=== PATIENT | male | born 1990 | race Caucasian/White ===

== ENCOUNTER → 2025-02-02 13:59 | Outpatient (BNVA) | payer BC, MEDICAID, SELFPAY | PROVIDERS: PCP Family Medicine; Visit Provider Orthopaedic Surgery | DX: M54.9 Dorsalgia, unspecified (principal) | CPT/HCPCS: 72110 ==

== ENCOUNTER 2025-02-12 11:02 | Outpatient (CLI) | payer BC, MEDICAID, SELFPAY ==
--- NOTE | 2025-02-12 11:11 | XRR_ITS ---
PROCEDURE INFORMATION: Exam: XR Chest Exam date and time: 02/12/2025 11:37 AM Age: 34 years old Clinical indication: Other: Unintentional weght loss; Additional info: Unintentional weght loss/underweight TECHNIQUE: Imaging protocol: Radiologic exam of the chest. Views: 2 views. COMPARISON: No relevant prior studies available. FINDINGS: Lungs: The lungs are clear. Pleural spaces: No pneumothorax or pleural effusion. Heart/Mediastinum: Cardiomediastinal silhouette is unremarkable. Bones/joints: No acute osseous or soft tissue abnormality. Apparent cachexia. XR/XR chest 2V* [id number] IMPRESSION: No acute cardiopulmonary abnormality.
== END 2025-02-12 11:03 | disposition home or self-care (01) ==
PROVIDERS: PCP Family Medicine; Visit Provider Family Medicine
DX: R63.4 Abnormal weight loss (principal)
CPT/HCPCS: 71046

== ENCOUNTER 2025-05-22 17:41 | Emergency (ER) | payer BC, MEDICAID, SELFPAY ==
[2025-05-22 17:44] VITALS: BP 130/80; PULSE 81; RESP 17; TEMP 36.6; O2SAT 99
--- NOTE | 2025-05-22 19:13 | XRR_ITS ---
PROCEDURE INFORMATION: Exam: XR Thoracic Spine Exam date and time: 05/22/2025 7:31 PM Age: 34 years old Clinical indication: Pain in thoracic spine; C/O mid back pain with no injury TECHNIQUE: Imaging protocol: Radiologic exam of the thoracic spine. Views: 3 views. COMPARISON: CR XR chest 2V* [id number] 02/12/2025 11:37 AM FINDINGS: Bones/joints: Normal. No acute fracture. Normal alignment. Soft tissues: Unremarkable. XR/XR thoracic spine 3V* [id number] IMPRESSION: No acute findings.
--- NOTE | 2025-05-22 19:48 | W.ED.BACK ---
HPI - Back Pain/Injury General: Chief Complaint: Back Pain/Injury Stated Complaint: low back pain Time Seen by Provider: 05/22/25 17:53 Source: patient Mode of arrival: wheelchair Limitations: no limitations History of Present Illness: Patient is a 34-year-old male who presents the emergency department planing of mid back pain beginning few hours prior to arrival. He states he has had similar pain in the past but never this severe. States he noticed it when he was lying down to take a nap, it is directly in the middle of his back and nonradiating. He is not reporting any bowel or bladder incontinence or saddle anesthesia. No distal numbness or weakness in his legs. No previous back surgeries. No trauma is reported. No history of cancer, chronic steroid use, IV drug use, fever, night sweats, or significant weight loss. He has not taken anything for pain. MD elicited complaint: back pain Onset (ago): hour(s) Timing: constant Severity: moderate Similar Symptoms Previously: Yes Location: thoracic spine Radiation: none Exacerbating factors: supine positioning Associated symptoms: Deny abdominal pain, difficulty walking, fecal incontinence, fever(s) or syncope Related Data Home Medications ?Medication ?Instructions ?Recorded ?Confirmed cyclobenzaprine 10 mg tablet 10 mg PO TID 02/02/25 03/24/25 gabapentin 300 mg capsule 300 mg PO BID 02/02/25 03/24/25 brimonidine 0.2 %-timolol 0.5 % drp ophthalmic (eye) 03/24/25 03/24/25 eye drops ergocalciferol (vitamin D2) 1,250 PO 03/24/25 03/24/25 mcg (50,000 unit) capsule Allergies Allergy/AdvReac Type Severity Reaction Status Date / Time No Known Allergies Allergy Verified 03/24/25 16:03 Review of Systems General: Reports: 10 or more systems reviewed and unremarkable except in HPI and below Const: Reports: other (denies trauma); Denies: fever(s), change in weight or night sweats Card: Denies: chest pain, lightheadedness or syncope Resp: Denies: dyspnea GI: Denies: abdominal pain or fecal incontinence : Denies: urinary incontinence Musc: Reports: back pain; Denies: neck pain or extremity pain Skin/Breast: Denies: rash or skin pain Neuro: Denies: headache(s), numbness in extremities, weakness in extremities, sensory changes, lack of coordination, difficulty walking, frequent falls or involuntary movements PFSH ED PFSH: Social History Smoking and tobacco/nicotine status: former use of tobacco/nicotine Physical Exam Const: COMMON NORMALS: no acute distress, patient oriented x3, no limitations and alert GENERAL APPEARANCE: cooperative NUTRITIONAL APPEARANCE: thin OTHER: nontoxic appearing Resp: COMMON NORMALS: normal respiratory effort, No retractions, No use of accessory muscles and clear to auscultation bilaterally AUSCULTATION: clear to auscultation bilaterally Cardio: COMMON NORMALS: regular rate, regular rhythm, S1 normal heart sound present and S2 normal heart sound present RATE: regular rate RHYTHM: regular rhythm HEART SOUNDS: S1 normal heart sound present and S2 normal heart sound present Back/Pelvis: OTHER: Normal visual examination. Reproducible tenderness to palpation of the thoracic spine. No paracervical, parathoracic, or paralumbar tenderness to palpation. Full active range of motion. Extremity: COMMON NORMALS: normal to inspection and full ROM Neuro: COMMON NORMALS: patient oriented x3, moves all extremities, no focal motor deficits, no sensory deficits noted, deep tendon reflexes 2+ bilaterally and gait normal SENSORIUM/ORIENTATION: Yes alert OTHER: L3, L4, L5, and S1 nerve sensations intact. Normal knee jerk and ankle jerk reflexes. Skin: COMMON NORMALS: no rashes or lesions noted GENERAL SKIN EXAM: no rashes or lesions noted Course Vital Signs: Vital signs: Vital Signs Temperature 97.9 F 05/22/25 17:44 Pulse Rate 81 05/22/25 17:44 Respiratory Rate 17 05/22/25 17:44 Blood Pressure 130/80 05/22/25 17:44 Pulse Oximetry 99 05/22/25 17:44 Oxygen Delivery Me thod Room Air 05/22/25 17:44 MDM - Back Pain/Injury Medical Decision Making This patient presented by ambulance for mid back pain, very thin male on exam with point tenderness to the thoracic spine, though there is no step-off deformity. There is no concerning history such as IV drug use or history of cancer, and he had no neurological symptoms or any other associated symptoms to report. Neurologically intact on physical exam as well. Noted some improvement after Toradol here, and an x-ray does not show any large mass, or severe degenerative changes. Suspect that this is a contusion, is very thin stature likely makes onset more cryptic but I do not suspect any acute or emergent process at this time. His vitals have been stable, and I did educate him and family on reasons to return to the ED immediately. This was understood and he will be discharged home at this time. Labs Radiology Impressions Thoracic Spine X-Ray 05/22/25 19:13 IMPRESSION: No acute findings. All radiology interpretation(s) finalized by discharge Discharge Plan Discharge Patient Disposition: Home Clinical Impression: Contusion of mid back Qualifiers: Encounter type: initial encounter Laterality: unspecified laterality Qualified Code(s): S20.229A - Contusion of unspecified back wall of thorax, initial encounter Condition: Stable Prescriptions: No Action cyclobenzaprine 10 mg tablet 10 mg PO TID gabapentin 300 mg capsule 300 mg PO BID ergocalciferol (vitamin D2) 1,250 mcg (50,000 unit) capsule PO brimonidine-timolol 0.2-0.5 % drops ophthalmic (eye) Discharge Orders: Discharge ED (Routine); Ordered 05/22/25 Ordered By: Gray Skelton Referrals: Jairo Elliott MD [Primary Care Provider, [facility]] Patient Instructions: Patient Portal & Christina Instructions Activity Restrictions/Additional Instructions: Mid-Back Contusion Discharge Diagnosis: 34-year-old male with contusion of the mid back. X-ray negative for acute fracture or other significant findings. No red flag symptoms on history or examination. Discharge Instructions: 1. Activity and Mobilization - Encourage early mobilization and activity as tolerated. Prolonged bed rest should be avoided, as remaining active is associated with improved short-term outcomes and reduced disability. - Gradually resume normal activities, avoiding movements that exacerbate pain. - If pain is severe, limit strenuous activity but do not remain immobile. 2. Analgesia and Symptom Management - Use nonsteroidal anti-inflammatory drugs (NSAIDs) such as ibuprofen or acetaminophen for pain control, following standard dosing guidelines and considering contraindications. - Muscle relaxants may be considered for short-term use if muscle spasm is present, but should be used judiciously. - Application of local heat may provide symptomatic relief. 3. Physical Therapy and Exercise - If pain persists beyond 2?4 weeks or interferes with function, consider referral for physical therapy. - Home exercises focusing on gentle stretching and spine stabilization may be beneficial, but should be initiated only as pain allows. 4. Bracing - Routine use of external bracing is not required for isolated contusions without instability or neurological deficit. The [employer] notes that bracing does not improve outcomes in neurologically intact patients with stable thoracolumbar injuries, but may be considered for comfort at the discretion of the treating physician. 5. Patient Education and Prognosis - Most cases of isolated back contusion are self-limited and resolve with conservative management. - Educate regarding the natural history and expected recovery, emphasizing the importance of activity and avoidance of bed rest. 6. Strict Return Precautions Advise immediate return for any of the following symptoms, which may indicate a more serious underlying injury or complication: - New or worsening weakness, numbness, or tingling in the legs - Loss of bowel or bladder control, urinary retention, or incontinence - Loss of anal sphincter tone or saddle anesthesia - Severe, unremitting pain not controlled with recommended measures - Fever, chills, or signs of systemic illness - Any other concerning or rapidly progressive symptoms Follow-Up: Routine follow-up is not required unless symptoms persist beyond 2?4 weeks, worsen, or new symptoms develop. If pain is not improving, consider further evaluation and referral as appropriate. Summary: This patient has a benign, self-limited injury with no evidence of acute fracture or neurological compromise. Conservative management with early mobilization, analgesia, and patient education is recommended. Strict return precautions are provided to ensure prompt recognition of any delayed complications. Print Language: Greek Coding Level of Care Code ED Technical Sales Director for Rubia Cole
== END 2025-05-22 20:16 | disposition home or self-care (01) ==
PROVIDERS: Emergency Provider Physician Assistant; PCP Family Medicine
DX: S20.224A Contusion of middle back wall of thorax, initial encounter (principal); Z87.891 Personal history of nicotine dependence; X58.XXXA Exposure to other specified factors, initial encounter
CPT/HCPCS: 72072; 96372; 99284; J1885

== ENCOUNTER 2025-05-23 18:50 | Emergency (ER) | payer BC, MEDICAID, SELFPAY ==
[2025-05-23 18:58] VITALS: BP 125/89; PULSE 67; RESP 18; O2SAT 99; BMI 18.6
--- NOTE | 2025-05-23 19:16 | CTR_ITS ---
PROCEDURE INFORMATION: Exam: CT Thoracic Spine With Contrast Exam date and time: 05/23/2025 7:38 PM Age: 34 years old Clinical indication: Pain in thoracic spine; Persistent mid back pain with no injury; Additional info: Lower thoracic back pain no injury TECHNIQUE: Imaging protocol: Computed tomography of the thoracic spine with contrast. Radiation optimization: All CT scans at this facility use at least one of these dose optimization techniques: automated exposure control; mA and/or kV adjustment per patient size (includes targeted exams where dose is matched to clinical indication); or iterative reconstruction. Contrast material: OMNI 350; Contrast volume: 80 ml; Contrast route: INTRAVENOUS (IV); COMPARISON: CR (CHEST, ) 05/22/2025 7:31 PM RADIATION DOSE METRICS: Total DLP (mGy-cm): 401.34 FINDINGS: Bones/joints: Vertebral body heights are maintained. Facet alignment is preserved. No acute fracture. No aggressive osseous lesions. No significant degenerative change. No high-grade neural foraminal or spinal canal stenosis. Soft tissues: Unremarkable. CT/CT thoracic spine w con [id number] IMPRESSION: No acute findings. No significant degenerative change. If symptoms persist, consider outpatient MRI.
[2025-05-23 19:28] LABS: Hematocrit 38.8 % (37-53); Hemoglobin 13.50 g/dL (11.27-16.99); Mean Corpuscular HGB Conc 34.8 g/dL (30-55); Mean Corpuscular Hemoglobin 30.8 pg (27-33); Mean Corpuscular Volume 88.6 fl (82-101); Nucleated Red Blood Cells % 0 %; Platelet Count 247 10^3/cmm (157-399); Red Blood Count 4.38 10^6/uL (3.85-5.65); White Blood Count 5.31 10^3/uL (3.29-11.43)
--- NOTE | 2025-05-23 19:32 | ED_ITS ---
HPI - Back Pain/Injury 2 General: Chief Complaint: Back Pain/Injury Stated Complaint: Back Pain Time Seen by Provider: 05/23/25 19:07 History of Present Illness: 34-year-old 43 kg male presenting with m idline lower thoracic back pain. No injury. He was here last night for the same symptoms. X-rays were negative. No fever. No urine changes. No vomiting. No diarrhea. No other systemic symptoms. He states his back was improved until a couple of hours prior to arrival after last night. He denies other medical problems. 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 Related Data Home Medications ?Medication ?Instructions ?Recorded ?Confirmed cyclobenzaprine 10 mg tablet 10 mg PO TID 02/02/2511/17 gabapentin 300 mg capsule 300 mg PO BID 02/02/2503/24 brimonidine 0.2 %-timolol 0.5 % drp ophthalmic (eye) 0 03/24/25 03/24/25 eye drops ergocalciferol (vitamin D2) 1,250 PO 03/24/25 03/24/25 mcg (50,000 unit) capsule Previous Rx's ?Medication ?Instructions ?Recorded diclofenac sodium 50 mg 50 mg PO TID PRN pain #30 ta bs 05/23/25 tablet,delayed release methylprednisolone 4 mg tablets in See Rx Instructions PO .COMPLEX 05/23/25 a dose pack (Medrol (Cristi)) #21 ea Allergies Allergy/AdvReac Type Severity Reaction Status Date / Time No Known Allergies Allergy Verified 05/23/25 19:05 [facility] ED 2 PFSH: Social History Smoking and tobacco/nicotine status: former use of tobacco/nicotine Physical Exam 2 Const: GENERAL APPEARANCE: cooperative and frail appearing (For age); not ill appearing NUTRITIONAL APPEARANCE: thin HENMT: COMMON NORMALS: normocephalic, atraumatic and Normal external nose present HEAD & SCALP: normocephalic and atraumatic FACE & SINUS: normal facial exam and face symmetric NOSE: Normal external nose present Eye: COMMON NORMALS: Equal, round and reactive pupils present and EOMs intact bilaterally PUPIL: Yes Equal, round and reactive pupils present Neck/C-Spine: GENERAL: Yes trachea midline Chest: CHEST: Yes Symmetrical chest wall rise Resp: COMMON NORMALS: normal respiratory effort, No retractions, No use of accessory muscles and clear to auscultation bilaterally AUSCULTATION: clear to auscultation bilaterally Cardio: COMMON NORMALS: regular rate and regular rhythm RATE: regular rate RHYTHM: regular rhythm GI: COMMON NORMALS: Normal to inspection, nondistended, normoactive bowel sounds present Back/Pelvis: OTHER: Examination of the spine reveals exquisite tenderness over the lower thoracic spine. Only in the midline. No paraspinal muscular tenderness or muscle spasm. Minimal warmth present midline. Skin is hyperesthetic. No increased pain with straight leg raise testing while seated. Extremity: COMMON NORMALS: no pedal edema Neuro: DORCAS COMA SCALE: document GCS findings [place] coma scale eye opening: Spontaneous Dorcas coma scale verbal response: Orientated Dorcas coma scale motor response: Obey commands Dorcas coma scale total score: 15 S ENSORY EXAM: Yes extremities (intact) Psych: COMMON NORMALS: speech normal SPEECH: Yes normal speech Skin: NARRATIVE SKIN EXAM: Minimal discoloration of the tender area, with very slight ecchymosis in the midline at the lower thoracic spine. Course 2 Vital Signs: Vital signs: Vital Signs Pulse Rate 75 05/23/25 23:41 Respiratory Rate 17 05/23/25 23:41 Blood Pressure 112/82 05/23/25 23:41 Pulse Oximetry 97 05/23/25 23:41 Oxygen Delivery Me thod Room Air 05/23/25 20:02 MDM - Back Pain/Injury Medical Decision Making Vitals are normal. CBC is normal. Labs are pending. Pain is out of proportion to the exam findings. This is an odd presentation with no injury. CT with contrast has been ordered. On thoracic imaging, partial imaging of a renal cyst was caught. Because of this, imaging of the chest abdomen pelvis was performed. There were no acute findings on the thoracic spine CT. No mass, no significant degenerative change, no abscess or evidence of active infection. Chest abdomen pelvis CT reveal findings suspicious for acute seminal vesiculitis prostatitis and cystitis. He does have some constipation as well. His urinalysis is negative. He denies overt testicular pain or mass. This is still an odd presentation. Will proceed with ultrasound of the testicles to ensure no mass and to further define infection. Testicular ultrasound is normal. Patient is feeling better. With normal testicular ultrasound, and no evidence of UTI, we will elect not to treat at this time. Close outpatient follow-up. Will treat with a short tapering dose of steroid, pain medication in the form of anti-inflammatories. Follow-up with PCP this coming week. Further outpatient imaging such as MRI may be needed if symptoms persist Labs 05/23/25 19:23 05/23/25 19:23 Radiology Impressions Thor[address] Spine CT 05/23/25 19:16 IMPRESSION: No acute findings. No significant degenerative change. If symptoms persist, consider outpatient MRI. Chest/Abdomen/Pelvis CT 05/23/25 19:47 IMPRESSION: No acute findings. IMPRESSION: 1. Findings suspicious for acute seminal vesiculitis, prostatitis, and cystitis. 2. Moderate colonic stool burden, suggestive constipation. Scrotum Ultrasound 05/23/25 21:16 IMPRESSION: No definite acute abnormality. Laboratory Results WBC 5.31 10^3/uL (3.29-11.43) 05/23/25 19:23 RBC 4.38 10^6/uL (3.85-5.65) 05/23/25 19:23 Hgb 13.50 g/dL (11.27-16.99) 05/23/25 19:23 Hct 38.8 % (37-53) 05/23/25 19:23 MCV 88.6 fl (82-101) 05/23/25 19:23 MCH 30.8 pg (27-33) 05/23/25 19:23 MCHC 34.8 g/dL (30-55) 05/23/25 19:23 RDW 12.0 % (12.1-15.1) L 05/23/25 19:23 Plt Count 247 10^3/cmm (157-399) 05/23/25 19:23 MPV 10.3 fL (7.4-10.4) 05/23/25 19:23 Neut % (Auto) 51.9 % 05/23/25 19:23 Lymph % (Auto) 35.0 % 05/23/25 19:23 Dougherty % (Auto) 10.7 % 05/23/25 19:23 Eos % (Auto) 1.3 % 05/23/25 19:23 Baso % (Auto) 0.9 % 05/23/25 19:23 Neut # (Auto) 2.75 10^3/uL (1.8-7.7) 05/23/25 19:23 Lymph # (Auto) 1.9 10^3/uL (0.8-4.8) 05/23/25 19:23 Dougherty # (Auto) 0.6 10^3/uL (0.2-0.9) 05/23/25 19:23 Eos # (Auto) 0.1 10^3/uL (0.0-0.8) 05/23/25 19:23 Baso # (Auto) 0.1 10^3/uL (0.0-0.1) 05/23/25 19:23 Nucleated RBC % (auto) 0 % 05/23/25 19:23 Nucleated RBCs # 0.0 /100WBC 05/23/25 19:23 ESR 46 mm/hr (0-10) H 05/23/25 19:23 Sodium 137 mmol/L (136-145) 05/23/25 19:23 Potassium 3.9 mmol/L (3.5-5.1) 05/23/25 19:23 Chloride 98 mmol/L (98-107) 05/23/25 19:23 Carbon Dioxide 28 mmol/L (22-29) 05/23/25 19:23 Anion Gap 14.9 (5-19) 05/23/25 19:23 BUN 12 mg/dL (6-20) 05/23/25 19:23 Creatinine 0.8 mg/dL (0.7-1.2) 05/23/25 19:23 GFR Calculation 110.7 mL/min (90-130) 05/23/25 19:23 Glucose 82 mg/dL (65-115) 05/23/25 19:23 Calculated Osmolality 283 mOsm/kg (285-295) L 05/23/25 19:23 Calcium 9.6 mg/dL (8.5-10.5) 05/23/25 19:23 Total Bilirubin 0.5 mg/dL (0.15-1.2) 05/23/25 19:23 AST 16 U/L (0-40) 05/23/25 19:23 ALT 9 U/L (0-41) 05/23/25 19:23 Alkaline Phosphatase 75 U/L (40-130) 05/23/25 19:23 C-Reactive Protein 3.0 mg/L (0.0-4.9) 05/23/25 19:23 Total Protein 7.4 g/dL (6.6-8.7) 05/23/25 19:23 Albumin 4.2 g/dL (3.5-5.2) 05/23/25 19:23 Globulin 3.2 g/dL (1.3-4.6) 05/23/25 19:23 TSH 3.13 uIU/mL (0.27-4.20) 05/23/25 19:23 Urine Color Yellow (Yellow) 05/23/25 19:34 Urine Appearance Clear (CLEAR) 05/23/25 19:34 Urine pH 6.0 (5-7) 05/23/25 19:34 Ur Specific Tracy 1.005 (1.005-1.030) 05/23/25 19:34 Urine Protein Negative (Negative) 05/23/25 19:34 Urine Glucose (UA) Negative (Normal) 05/23/25 19:34 Urine Ketones Negative (Negative) 05/23/25 19:34 Urine Blood Negative (Negative) 05/23/25 19:34 Urine Nitrate Negative (Negative) 05/23/25 19:34 Urine Bilirubin Negative (Negative) 05/23/25 19:34 Urine Urobilinogen 0.2 mg/dL (Negative) 05/23/25 19:34 Ur Leukocyte Esterase Negative (Negative) 05/23/25 19:34 Urine RBC 0-2 /hpf (0-2) 05/23/25 19:34 Urine WBC 0-5 /hpf (0-5) 05/23/25 19:34 Ur Squamous Epith Cells 0-5 /hpf (0-5) 05/23/25 19:34 Amorphous Sediment Not Reportable 05/23/25 19:34 Urine Bacteria None seen /hpf (NONE) 05/23/25 19:34 Hyaline Casts 0-4 /lpf H 05/23/25 19:34 Urine Opiates Screen Negative ng/mL (Negative) 05/23/25 19:34 Ur Barbiturates Screen Negative ng/mL (Negative) 05/23/25 19:34 Ur Phencyclidine Scrn Negative ng/mL (Negative) 05/23/25 19:34 Ur Amphetamines Screen Negative ng/mL (Negative) 05/23/25 19:34 U Benzodiazepines Scrn Negative ng/mL (Negative) 05/23/25 19:34 Urine Cocaine Screen Negative ng/mL (Negative) 05/23/25 19:34 U Marijuana (THC) Screen Negative ng/mL (Negative) 05/23/25 19:34 All radiology interpretation(s) finalized by discharge Discharge Plan Discharge Patient Disposition: Home Clinical Impression: Thoracic back pain Condition: Stable Prescriptions: New methylprednisolone [Medrol (Cristi)] 4 mg tablets,dose pack See Rx Instructions .ROUTE .COMPLEX Qty: 21 0RF Rx Instructions: orally per package directions diclofenac sodium 50 mg tablet,delayed release (DR/EC) 50 mg PO TID PRN (Reason: pain) Qty: 30 0RF No Action cyclobenzaprine 10 mg tablet 10 mg PO TID gabapentin 300 mg capsule 300 mg PO BID ergocalciferol (vitamin D2) 1,250 mcg (50,000 unit) capsule PO brimonidine-timolol 0.2-0.5 % drops ophthalmic (eye) Discharge Orders: Discharge ED (Routine); Ordered 05/23/25 Ordered By: Laureano Smith Referrals: Jairo Elliott MD [Primary Care Provider, Family Practice] - 1-3 days Patient Instructions: Back Pain (ED), Opioid Safety, Pain Management, Patient Portal & Christina Instructions Activity Restrictions/Additional Instructions: Follow-up with your doctor this coming week. Call Saturday for an appointment. Further outpatient workup or imaging may need to be completed if pain persists. Medication as directed. Return for fever, vomiting, other concerning symptoms. Print Language: Danish Coding Level of Care Code ED Education Counselor for Rubia Cole
[2025-05-23] MEDS: iohexol 350 mg/mL 500 mL Btl (per mL) IV (19:41)
--- NOTE | 2025-05-23 19:47 | CTR_ITS ---
PROCEDURE INFORMATION: Exam: CT Chest With Contrast; Diagnostic Exam date and time: 05/23/2025 7:48 PM Age: 34 years old Clinical indication: Other: N/a; Persistent mid back pain with increased weight loss despite increased caloric intake; Additional info: Back pain with weight loss TECHNIQUE: Imaging protocol: Diagnostic computed tomography of the chest with contrast. Radiation optimization: All CT scans at this facility use at least one of these dose optimization techniques: automated exposure control; mA and/or kV adjustment per patient size (includes targeted exams where dose is matched to clinical indication); or iterative reconstruction. Contrast material: OMNI 350; Contrast volume: 80 ml; Contrast route: INTRAVENOUS (IV); COMPARISON: CR XR chest 2V* [id number] 02/12/2025 11:37 AM RADIATION DOSE METRICS: Total DLP (mGy-cm): 516.79 FINDINGS: Lungs: No pulmonary mass or consolidation. Pleural spaces: No pneumothorax. No pleural effusion. Heart: No cardiomegaly. No pericardial effusion. Lymph nodes: No enlarged lymph nodes. Vasculature: No aortic aneurysm or dissection. Respiratory motion limits evaluation of the aortic root. Bones/joints: No acute fracture. Soft tissues: Unremarkable. PROCEDURE INFORMATION: Exam: CT Abdomen And Pelvis With Contrast Exam date and time: 05/23/2025 7:48 PM Age: 34 years old Clinical indication: Other: N/a; Persistent mid back pain with increased weight loss despite increased caloric intake; Additional info: Back pain with weight loss TECHNIQUE: Imaging protocol: Computed tomography of the abdomen and pelvis with contrast. Radiation optimization: All CT scans at this facility use at least one of these dose optimization techniques: automated exposure control; mA and/or kV adjustment per patient size (includes targeted exams where dose is matched to clinical indication); or iterative reconstruction. Contrast material: OMNI 350; Contrast volume: 80 ml; Contrast route: INTRAVENOUS (IV); COMPARISON: CR XR lumbar spine min 4V [id number] 02/02/2025 2:50 PM RADIATION DOSE METRICS: Total DLP (mGy-cm): 516.79 FINDINGS: Liver: Liver is unremarkable. Gallbladder and biliary ducts: No calcified gallstones, pericholecystic inflammatory change, or biliary ductal dilation. Pancreas: Pancreas is unremarkable. Spleen: Spleen is unremarkable. Adrenal glands: No adrenal nodules. Kidneys and ureters: Calyceal diverticulum in the right superior renal pole. No hydroureteronephrosis. Stomach and bowel: No bowel obstruction. Moderate colonic stool burden. Appendix: No evidence of appendicitis. Intraperitoneal space: No free air. No significant fluid collection. Vasculature: No aortic aneurysm. Lymph nodes: No enlarged lymph nodes. Urinary bladder: Circumferential bladder wall thickening. Reproductive: Heterogeneous mildly enlarged prostate. Seminal vesicle enlargement with areas of cystic dilation and mural hyperemia. Bones/joints: No acute fracture. No aggressive osseous lesions. No high-grade neural foraminal or spinal canal stenosis in the lumbar spine. Soft tissues: Unremarkable. CT/CT chest abdpel w/*[id number] IMPRESSION: No acute findings. IMPRESSION: 1. Findings suspicious for acute seminal vesiculitis, prostatitis, and cystitis. 2. Moderate colonic stool burden, suggestive constipation.
[2025-05-23 19:58] LABS: Alanine Aminotransferase 9 U/L (0-41); Albumin Level 4.2 g/dL (3.5-5.2); Alkaline Phosphatase 75 U/L (40-130); Anion Gap 14.9 (5-19); Aspartate Amino Transferase 16 U/L (0-40); Blood Urea Nitrogen 12 mg/dL (6-20); Calcium 9.6 mg/dL (8.5-10.5); Carbon Dioxide 28 mmol/L (22-29); Chloride 98 mmol/L (98-107); Creatinine Clr Calc Pharmacy 87.0120; Globulin 3.2 g/dL (1.3-4.6); Glucose 82 mg/dL (65-115); Osmolality Calculated 283 mOsm/kg (285-295); Potassium 3.9 mmol/L (3.5-5.1); Sodium 137 mmol/L (136-145); Total Protein 7.4 g/dL (6.6-8.7)
[2025-05-23] MEDS: ondansetron 2 mg/ML SDV 2 mL 4 MG IVP (20:00)
[2025-05-23 20:02] VITALS: BP 147/100; PULSE 100; RESP 16; O2SAT 100
[2025-05-23] MEDS: morphine 4 mg/mL SDV 1 mL IVP (20:02)
[2025-05-23 20:09] LABS: Glucose Urine UA Negative (Normal); Nitrate Urine Negative (Negative); Specific Gravity, Urine 1.005 (1.005-1.030)
[2025-05-23 20:15] LABS: Add Urine Microscopic? YES
[2025-05-23 20:16] LABS: PCP Screen Urine Negative (Negative)
[2025-05-23 20:53] LABS: Thyroid Stimulating Hormone 3.13 uIU/mL (0.27-4.20)
--- NOTE | 2025-05-23 21:16 | USR_ITS ---
PROCEDURE INFORMATION: Exam: US Scrotum Exam date and time: 05/23/2025 10:05 PM Age: 34 years old Clinical indication: Abnormal findings; Abnormal imaging studies, genitourinary organs; Additional info: Vesiculitis TECHNIQUE: Imaging protocol: Real-time ultrasound of the scrotum and contents with color Doppler and image documentation. COMPARISON: CR XR lumbar spine min 4V [id number] 02/02/2025 2:50 PM FINDINGS: Right testicle: Normal. No mass. Normal color Doppler and arterial waveforms. No torsion. Left testicle: Normal. Larger relative to right, questionable clinical significance. No mass. Normal color Doppler and arterial waveforms. No torsion. Epididymides: Normal. Bilateral epididymal cysts. Scrotum/soft tissues: Normal. Mild hydrocele on the left. US/US scrotum [id number] IMPRESSION: No definite acute abnormality.
[2025-05-23 23:41] VITALS: BP 112/82; PULSE 75; RESP 17; O2SAT 97
== END 2025-05-23 23:44 | disposition home or self-care (01) ==
PROVIDERS: Emergency Provider Emergency Medicine; PCP Family Medicine
DX: M54.6 Pain in thoracic spine (principal); Z87.891 Personal history of nicotine dependence
CPT/HCPCS: 36415; 71260; 72129; 74177; 76870; 80053; 80306; 81001; 84443; 85025; 85651; 86140; 96374; 96375; 99285; J1885; J2270; J2405

== ENCOUNTER 2025-06-02 18:20 | Emergency (ER) | payer BC, MEDICAID, SELFPAY ==
[2025-06-02 18:47] VITALS: BP 126/83; PULSE 64; RESP 14; TEMP 36.4; O2SAT 100
--- NOTE | 2025-06-02 19:18 | W.ED.BACK ---
HPI - Back Pain/Injury General: Chief Complaint: Back Pain/Injury Stated Complaint: chronic back pain History of Present Illness: 34-year-old male with history of chronic low back pain. Said his got worse today. He was worked up just over 10 days ago here in the emergency room for this thoroughly. We discussed that he needs to get in with his primary doc and consider MRI, physical therapy and if he needs chronic pain management they will have to do this. No saddle numbness, no urinary retention or incontinence, no focal motor deficit, no sensory deficit. no recent fever. no cough. no shortness of breath. no chest pain. no abdominal pain. no nausea or vomiting. no dysuria. no altered mental status. no edema. Related Data Home Medications ?Medication ?Instructions ?Recorded ?Confirmed cyclobenzaprine 10 mg tablet 10 mg PO TID 02/02/25 03/24/25 gabapentin 300 mg capsule 300 mg PO BID 02/02/25 03/24/25 brimonidine 0.2 %-timolol 0.5 % drp ophthalmic (eye) 03/24/25 03/24/25 eye drops ergocalciferol (vitamin D2) 1,250 PO 03/24/25 03/24/25 mcg (50,000 unit) capsule Previous Rx's ?Medication ?Instructions ?Recorded diclofenac sodium 50 mg 50 mg PO TID PRN pain #30 tabs 05/23/25 tablet,delayed release methylprednisolone 4 mg tablets in See Rx Instructions PO .COMPLEX 05/23/25 a dose pack (Medrol (Cristi)) #21 ea cyclobenzaprine 10 mg tablet 10 mg PO Q8H PRN muscle spasm #20 06/02/25 tabs hydrocodone 5 mg-acetaminophen 325 1 tab PO Q6H PRN pain #20 tabs 06/02/25 mg tablet polyethylene glycol 3350 17 17 g PO DAILY #510 grams 06/02/25 gram/dose oral powder (Miralax) Allergies Allergy/AdvReac Type Severity Reaction Status Date / Time No Known Allergies Allergy Verified 06/02/25 18:50 Review of Systems Narrative: Constitutional symptoms: Negative except as documented in HPI. Skin symptoms: Negative except as documented in HPI. Eye symptoms: Negative except as documented in HPI. ENMT symptoms: Negative except as documented in HPI. Respiratory symptoms: Negative except as documented in HPI. Cardiovascular symptoms: Negative except as documented in HPI. Gastrointestinal symptoms: Negative except as documented in HPI. Genitourinary symptoms: Negative except as documented in HPI. Musculoskeletal symptoms: Negative except as documented in HPI. Neurologic symptoms: Negative except as documented in HPI. Psychiatric symptoms: Negative except as documented in HPI. Endocrine symptoms: Negative except as documented in HPI. PFSH ED PFSH: Social History Smoking and tobacco/nicotine status: former use of tobacco/nicotine Physical Exam Narrative: EXAM NARRATIVE: General: Alert, no acute distress. Head: Normocephalic Neck: Trachea midline Eye: Extraocular movements are intact. Ears, nose, mouth and throat: Oral mucosa moist Respiratory: Respirations are non-labored Musculoskeletal: Normal ROM Back: no step off, no focal tenderness, some paraspinal muscle tenderness Neurological: Alert and oriented, No focal neurological deficit observed. Psychiatric: Cooperative, appropriate mood & affect. Course Vital Signs: Vital signs: Vital Signs Temperature 97.5 F L 06/02/25 18:47 Pulse Rate 64 06/02/25 18:47 Respiratory Rate 14 06/02/25 18:47 Blood Pressure 126/83 06/02/25 18:47 Pulse Oximetry 100 06/02/25 18:47 Oxygen Delivery Me thod Room Air 06/02/25 18:47 MDM - Back Pain/Injury Medical Decision Making Assessment and plan: Low back pain ?[place], IM Toradol and IM Norflex in the emergency room - Discharged home - Discussed plan with patient. Answered any questions. - Evaluation and treatment of this problem were appropriate in the emergency setting. No radiology studies performed this visit Discharge Plan Discharge Patient Disposition: Home Clinical Impression: Lumbar radiculopathy Condition: Stable Prescriptions: New cyclobenzaprine 10 mg tablet 10 mg PO Q8H PRN (Reason: muscle spasm) Qty: 20 0RF hydrocodone-acetaminophen 5-325 mg tablet 1 tab PO Q6H PRN (Reason: pain) Qty: 20 0RF polyethylene glycol 3350 [Miralax] 17 gram/dose powder 17 g PO DAILY Qty: 510 0RF Rx Instructions: Take 1 scoop daily while taking pain medications. No Action cyclobenzaprine 10 mg tablet 10 mg PO TID gabapentin 300 mg capsule 300 mg PO BID ergocalciferol (vitamin D2) 1,250 mcg (50,000 unit) capsule PO brimonidine-timolol 0.2-0.5 % drops ophthalmic (eye) methylprednisolone [Medrol (Cristi)] 4 mg tablets,dose pack See Rx Instructions .ROUTE .COMPLEX Qty: 21 0RF Rx Instructions: orally per package directions diclofenac sodium 50 mg tablet,delayed release (DR/EC) 50 mg PO TID PRN (Reason: pain) Qty: 30 0RF Discharge Orders: Discharge ED (Routine); Ordered 06/02/25 Ordered By: Cristina Meléndez Referrals: Jairo Elliott MD [Primary Care Provider, Family Practice] Discharge Diet: Usual diet Discharge Activity: Increase activity as tolerated Patient Instructions: Opioid Safety, Pain Management, Patient Portal & Christina Instructions Activity Restrictions/Additional Instructions: Thank you for choosing [facility] for your healthcare needs today. You have been screened and evaluated and felt safe for discharge. Health conditions do change or evolve sometimes and as such it is important that you follow up with your Primary Doctor to be re checked, 3-5 days is a general good time frame for follow up. You are always welcome to return to the ED for re assessment if your symptoms are worsening or you have new concerns Print Language: South African Coding Level of Care Code ED Primary Care Md for Rubia Cole
[2025-06-02] MEDS: HYDROcodone-acetaminophen 10-325 mg Tablet 1 TAB PO (19:25)
[2025-06-02] MEDS: orphenadrine 30 mg/mL Inj 2 mL 60 MG IM (19:25)
[2025-06-02 20:10] VITALS: BP 147/92; PULSE 66; O2SAT 99
== END 2025-06-02 20:11 | disposition home or self-care (01) ==
PROVIDERS: Emergency Provider Emergency Medicine; PCP Family Medicine
DX: M54.16 Radiculopathy, lumbar region (principal); Z87.891 Personal history of nicotine dependence
CPT/HCPCS: 96372; 99284; J1885; J2360; J9999

== ENCOUNTER 2025-06-06 07:14 | Emergency (ER) | payer BC, MEDICAID, SELFPAY ==
[2025-06-06 07:18] VITALS: BP 127/101; PULSE 80; RESP 16; TEMP 36.1; O2SAT 98; BMI 17.4
--- NOTE | 2025-06-06 07:25 | CTR_ITS ---
PROCEDURE INFORMATION: Exam: CT Lumbar Spine Without Contrast Exam date and time: 06/06/2025 7:47 AM Age: 34 years old Clinical indication: Low back pain TECHNIQUE: Imaging protocol: Computed tomography of the lumbar spine without contrast. Radiation optimization: All CT scans at this facility use at least one of these dose optimization techniques: automated exposure control; mA and/or kV adjustment per patient size (includes targeted exams where dose is matched to clinical indication); or iterative reconstruction. COMPARISON: CR XR lumbar spine min 4V [id number] 02/02/2025 2:50 PM RADIATION DOSE METRICS: Total DLP (mGy-cm): 277.98 FINDINGS: Bones/joints: No acute fracture. Normal alignment. No significant disc bulge or herniation. No severe spinal canal stenosis. No significant neural foraminal narrowing. Kidneys and ureters: Right renal cyst. Soft tissues: Unremarkable. CT/CT lumbar spine wo con* [id number] IMPRESSION: No acute lumbar spine fracture. COMMENTS: Consistent with the [employer]'s Incidental Findings Committee white paper (J Am Nichole Radiol 2018): Any incidental renal lesion less than 1 cm or classified as too small to characterize, or any incidental cystic renal lesion characterized as simple-appearing, is likely benign. No follow-up imaging is recommended for these lesions per consensus recommendations based on imaging criteria.
--- NOTE | 2025-06-06 07:26 | W.ED.BACK ---
HPI - Back Pain/Injury General: Chief Complaint: Back Pain/Injury Stated Complaint: low back pain Time Seen by Provider: 06/06/25 07:15 Source: patient Mode of arrival: ambulatory Limitations: no limitations History of Present Illness: 34-year-old male states he has been having low back pains going on for 1 to 2 weeks. States pain sharp in nature he was seen here 2 days ago states he is ran out of his medication he denies any bowel or bladder incontinence denies any difficulty walking. Associated symptoms: Deny abdominal pain, chills, fever(s), nausea or vomiting Related Data Home Medications ?Medication ?Instructions ?Recorded ?Confirmed cyclobenzaprine 10 mg tablet 10 mg PO TID 02/02/25 03/24/25 gabapentin 300 mg capsule 300 mg PO BID 02/02/25 03/24/25 brimonidine 0.2 %-timolol 0.5 % drp ophthalmic (eye) 03/24/25 03/24/25 eye drops ergocalciferol (vitamin D2) 1,250 PO 03/24/25 03/24/25 mcg (50,000 unit) capsule Previous Rx's ?Medication ?Instructions ?Recorded diclofenac sodium 50 mg 50 mg PO TID PRN pain #30 tabs 05/23/25 tablet,delayed release methylprednisolone 4 mg tablets in See Rx Instructions PO .COMPLEX 05/23/25 a dose pack (Medrol (Cristi)) #21 ea cyclobenzaprine 10 mg tablet 10 mg PO Q8H PRN muscle spasm #20 06/02/25 tabs hydrocodone 5 mg-acetaminophen 325 1 tab PO Q6H PRN pain #20 tabs 06/02/25 mg tablet polyethylene glycol 3350 17 17 g PO DAILY #510 grams 06/02/25 gram/dose oral powder (Miralax) Allergies Allergy/AdvReac Type Severity Reaction Status Date / Time No Known Allergies Allergy Verified 06/06/25 07:17 Review of Systems Const: Denies: fever(s), chills, body aches or change in appetite ENMT: Denies: throat pain or dental pain Card: Denies: chest pain Resp: Denies: dyspnea GI: Denies: abdominal pain, nausea, vomiting or diarrhea Musc: Reports: back pain; Denies: neck pain Skin/Breast: Denies: rash Neuro: Denies: headache(s) PFSH ED PFSH: Social History Smoking and tobacco/nicotine status: former use of tobacco/nicotine Physical Exam Const: COMMON NORMALS: no acute distress, patient oriented x3 and healthy appearing HENMT: COMMON NORMALS: normocephalic and atraumatic HEAD & SCALP: normocephalic and atraumatic Neck/C-Spine: COMMON NORMALS: full ROM and supple Chest: COMMONS NORMALS: normal inspection of the chest Resp: COMMON NORMALS: normal respiratory effort, No retractions, No use of accessory muscles and clear to auscultation bilaterally AUSCULTATION: clear to auscultation bilaterally Cardio: COMMON NORMALS: regular rate, regular rhythm and No murmurs present (Cardio) RATE: regular rate RHYTHM: regular rhythm Back/Pelvis: OTHER: Low back tenderness no saddle anesthesia Extremity: COMMON NORMALS: normal to inspection and full ROM Neuro: COMMON NORMALS: patient oriented x3, moves all extremities and no focal motor deficits Psych: COMMON NORMALS: mental status grossly normal, Normal thought process present and cooperative THOUGHT PROCESS: Normal thought process present Skin: COMMON NORMALS: no rashes or lesions noted and no wounds GENERAL SKIN EXAM: no rashes or lesions noted Course Vital Signs: Vital signs: Vital Signs Temperature 97.0 F L 06/06/25 07:18 Pulse Rate 84 06/06/25 08:30 Respiratory Rate 16 06/06/25 07:18 Blood Pressure 125/94 06/06/25 08:30 Pulse Oximetry 100 06/06/25 08:30 Oxygen Delivery Me thod Room Air 06/06/25 08:30 MDM - Back Pain/Injury Medical Decision Making Patient presents here with back pain imaging here is negative no signs of epidural abscess or cauda equina he is stable for discharge follow-up PCP return if worsening. Medical Records I reviewed the patient's medical records. Labs I reviewed the patient's lab results. Radiology Impressions Lumbar Spine CT 06/06/25 07:25 IMPRESSION: No acute lumbar spine fracture. COMMENTS: Consistent with the [employer]'s Incidental Findings Committee white paper (J Am Nichole Radiol 2018): Any incidental renal lesion less than 1 cm or classified as too small to characterize, or any incidental cystic renal lesion characterized as simple-appearing, is likely benign. No follow-up imaging is recommended for these lesions per consensus recommendations based on imaging criteria. All radiology interpretation(s) finalized by discharge Discharge Plan Discharge Patient Disposition: Home Clinical Impression: Back pain Condition: Stable Prescriptions: No Action cyclobenzaprine 10 mg tablet 10 mg PO TID gabapentin 300 mg capsule 300 mg PO BID ergocalciferol (vitamin D2) 1,250 mcg (50,000 unit) capsule PO brimonidine-timolol 0.2-0.5 % drops ophthalmic (eye) methylprednisolone [Medrol (Cristi)] 4 mg tablets,dose pack See Rx Instructions .ROUTE .COMPLEX Qty: 21 0RF Rx Instructions: orally per package directions diclofenac sodium 50 mg tablet,delayed release (DR/EC) 50 mg PO TID PRN (Reason: pain) Qty: 30 0RF cyclobenzaprine 10 mg tablet 10 mg PO Q8H PRN (Reason: muscle spasm) Qty: 20 0RF hydrocodone-acetaminophen 5-325 mg tablet 1 tab PO Q6H PRN (Reason: pain) Qty: 20 0RF polyethylene glycol 3350 [Miralax] 17 gram/dose powder 17 g PO DAILY Qty: 510 0RF Rx Instructions: Take 1 scoop daily while taking pain medications. Discharge Orders: Discharge ED (Routine); Ordered 06/06/25 Ordered By: Katelyn Chow Referrals: Jairo Elliott MD [Primary Care Provider, Family Practice] Discharge Diet: Advance as tolerated Discharge Activity: Resume usual activity Patient Instructions: Back Pain (ED) Print Language: Azeri Coding Level of Care Code ED Overlock Operator for Rubia Cole
[2025-06-06 08:30] VITALS: BP 125/94; PULSE 84; O2SAT 100
[2025-06-06 09:03] VITALS: BP 113/88; PULSE 83; O2SAT 100
== END 2025-06-06 09:04 | disposition home or self-care (01) ==
PROVIDERS: Emergency Provider Emergency Medicine; PCP Family Medicine
DX: M54.50 Low back pain, unspecified (principal); Z87.891 Personal history of nicotine dependence
CPT/HCPCS: 72131; 99284

== ENCOUNTER → 2025-06-22 13:35 | Outpatient (BNVA) | payer BC, MEDICAID, SELFPAY | PROVIDERS: PCP Family Medicine; Visit Provider Orthopaedic Surgery | DX: M54.9 Dorsalgia, unspecified (principal) | CPT/HCPCS: 72110 ==

== ENCOUNTER 2025-09-12 13:05 | Emergency (ER) | payer BC, MEDICAID, SELFPAY ==
[2025-09-12 13:07] VITALS: BP 117/82; PULSE 94; RESP 16; TEMP 36.3; O2SAT 100; BMI 15.7
--- NOTE | 2025-09-12 14:19 | XRR_ITS ---
PROCEDURE INFORMATION: Exam: XR Thoracic Spine Exam date and time: 09/12/2025 2:25 PM Age: 35 years old Clinical indication: Pain in thoracic spine; Additional info: Back pain TECHNIQUE: Imaging protocol: Radiologic exam of the thoracic spine. Views: 3 views. COMPARISON: CT thoracic spine w con [id number] 05/23/2025 7:38 PM FINDINGS: Bones/joints: Normal. No acute fracture. Normal alignment. Soft tissues: Unremarkable. XR/XR thoracic spine 3V* [id number] IMPRESSION: No acute findings.
--- NOTE | 2025-09-12 14:19 | XRR_ITS ---
PROCEDURE INFORMATION: Exam: XR Lumbosacral Spine Exam date and time: 09/12/2025 2:25 PM Age: 35 years old Clinical indication: Low back pain TECHNIQUE: Imaging protocol: Radiologic exam of the lumbosacral spine. Views: 2 or 3 views. COMPARISON: CR XR lumbar spine min 4V [id number] 06/22/2025 1:37 PM FINDINGS: Bones/joints: Normal. No acute fracture. Normal alignment. Soft tissues: Unremarkable. XR/XR lumbar spine 2-3V* [id number] IMPRESSION: No acute findings.
[2025-09-12 14:25] VITALS: BP 119/79; O2SAT 99
--- NOTE | 2025-09-12 14:40 | W.ED.BACK ---
HPI - Back Pain/Injury General: Chief Complaint: Back Pain/Injury Stated Complaint: back pain Time Seen by Provider: 09/12/25 14:17 Source: patient and EMS Mode of arrival: EMS Limitations: no limitations History of Present Illness: 35-year-old male has a history of chronic back pain states been having some increase lumbar thoracic pain over the last 2 days. Denies any injury states improved with rest denies any bowel or bladder incontinence rates his pain a 7 out of 10 currently. Related Data Home Medications ?Medication ?Instructions ?Recorded ?Confirmed gabapentin 300 mg capsule 300 mg PO BID 02/02/25 08/31/25 brimonidine 0.2 %-timolol 0.5 % drp ophthalmic (eye) 03/24/25 08/31/25 eye drops ergocalciferol (vitamin D2) 1,250 PO 03/24/25 08/31/25 mcg (50,000 unit) capsule Previous Rx's ?Medication ?Instructions ?Recorded diclofenac sodium 50 mg 50 mg PO TID PRN pain #30 tabs 05/23/25 tablet,delayed release methylprednisolone 4 mg tablets in See Rx Instructions PO .COMPLEX 05/23/25 a dose pack (Medrol (Cristi)) #21 ea hydrocodone 5 mg-acetaminophen 325 1 tab PO Q6H PRN pain #20 tabs 06/02/25 mg tablet polyethylene glycol 3350 17 17 g PO DAILY #510 grams 06/02/25 gram/dose oral powder (Miralax) tizanidine 4 mg tablet 4 mg PO BID PRN muscle spasticity 08/31/25 #60 tabs methocarbamol 750 mg tablet 750 mg PO Q6H PRN spasms #20 tabs 09/12/25 naproxen 500 mg tablet (Naprosyn) 500 mg PO BID PRN pain #20 tabs 09/12/25 Allergies Allergy/AdvReac Type Severity Reaction Status Date / Time No Known Allergies Allergy Verified 08/31/25 08:42 Review of Systems Musc: Reports: back pain PFSH ED PFSH: Social History Smoking and tobacco/nicotine status: former use of tobacco/nicotine Physical Exam Const: COMMON NORMALS: no acute distress, patient oriented x3 and healthy appearing HENMT: COMMON NORMALS: normocephalic and atraumatic HEAD & SCALP: normocephalic and atraumatic Neck/C-Spine: COMMON NORMALS: full ROM and supple Chest: COMMONS NORMALS: normal inspection of the chest Resp: COMMON NORMALS: normal respiratory effort Cardio: COMMON NORMALS: regular rate RATE: regular rate Back/Pelvis: OTHER: Tenderness over lumbar thoracic spine no obvious deformity Extremity: COMMON NORMALS: normal to inspection and full ROM Neuro: COMMON NORMALS: patient oriented x3, moves all extremities and no focal motor deficits Psych: COMMON NORMALS: mental status grossly normal, Normal thought process present and cooperative THOUGHT PROCESS: Normal thought process present Skin: COMMON NORMALS: no rashes or lesions noted and no wounds GENERAL SKIN EXAM: no rashes or lesions noted Course Vital Signs: Vital signs: Vital Signs Temperature 97.4 F L 09/12/25 13:07 Pulse Rate 94 09/12/25 13:07 Respiratory Rate 16 09/12/25 13:07 Blood Pressure 119/79 09/12/25 14:25 Pulse Oximetry 99 09/12/25 14:25 Oxygen Delivery [place] thod Room Air 09/12/25 14:25 MDM - Back Pain/Injury Medical Decision Making Patient presents here with back pain acute on chronic he has no signs of cauda equina or epidural abscess x-ray of his lumbar and thoracic spine interpreted by me showed no acute abnormalities did give him Toradol here will prescribe him Naprosyn and Robaxin he is to follow-up with his pain specialist return if worsening. Medical Records I reviewed the patient's medical records. XR interpretation done by ED provider, pending radiology final review ED provider radiology interpretation(s): xr t spine: no acute abnormality xr l spine: no acute abnormality Discharge Plan Discharge Patient Disposition: Home Clinical Impression: Back pain Condition: Stable Prescriptions: New methocarbamol 750 mg tablet 750 mg PO Q6H PRN (Reason: spasms) Qty: 20 0RF naproxen [Naprosyn] 500 mg tablet 500 mg PO BID PRN (Reason: pain) Qty: 20 0RF No Action tizanidine 4 mg tablet 4 mg PO BID PRN (Reason: muscle spasticity) Qty: 60 0RF gabapentin 300 mg capsule 300 mg PO BID ergocalciferol (vitamin D2) 1,250 mcg (50,000 unit) capsule PO brimonidine-timolol 0.2-0.5 % drops ophthalmic (eye) methylprednisolone [Medrol (Cristi)] 4 mg tablets,dose pack See Rx Instructions .ROUTE .COMPLEX Qty: 21 0RF Rx Instructions: orally per package directions diclofenac sodium 50 mg tablet,delayed release (DR/EC) 50 mg PO TID PRN (Reason: pain) Qty: 30 0RF hydrocodone-acetaminophen 5-325 mg tablet 1 tab PO Q6H PRN (Reason: pain) Qty: 20 0RF polyethylene glycol 3350 [Miralax] 17 gram/dose powder 17 g PO DAILY Qty: 510 0RF Rx Instructions: Take 1 scoop daily while taking pain medications. Discharge Orders: Discharge ED (Routine); Ordered 09/12/25 Ordered By: Katelyn Chow Referrals: Jairo Elliott MD [Primary Care Provider, [facility]] Discharge Diet: Advance as tolerated Discharge Activity: Resume usual activity Patient Instructions: Back Pain (ED) Print Language: Burkinan Coding Level of Care Code ED Joint Supervisor for Rubia Cole
[2025-09-12 14:55] VITALS: BP 119/79; PULSE 99; RESP 16; O2SAT 100
== END 2025-09-12 14:56 | disposition home or self-care (01) ==
PROVIDERS: Emergency Provider Emergency Medicine; PCP Family Medicine
DX: M54.9 Dorsalgia, unspecified (principal); Z87.891 Personal history of nicotine dependence
CPT/HCPCS: 72072; 72100; 96372; 99284; J1885; J9999

== ENCOUNTER 2025-09-14 18:08 | Emergency (ER) | payer BC, MEDICAID, SELFPAY ==
[2025-09-14 18:18] VITALS: BP 122/87; PULSE 72; RESP 17; TEMP 36.3; O2SAT 100; BMI 15.7
--- NOTE | 2025-09-14 19:14 | ED_ITS ---
Documented by User: ERIC Baker 09/14/25 19:49 HPI - Back Pain/Injury General: Chief Complaint: Back Pain/Injury Stated Complaint: Back pain and loosing weight Time Seen by Provider: 09/14/25 19:14 Source: patient and old records reviewed Mode of arrival: ambulatory Limitations: no limitations History of Present Illness: Patient is a 35-year-old male with multiple prior visits to the emergency department presenting for continued chronic back pain. The patient has been seen multiple times for the same symptoms since April, has had full workup with labs and imaging, x-ray and CT, all of which have been nondiagnostic. He has even followed up with orthopedics for evaluation of the low back pain as well as pain management, he has never received an MRI. He tells me he has been losing weight despite eating normal amount of food. He is not endorsing any fevers, saddle anesthesia, loss of function of bowel or bladder, difficulty ambulating, or any other symptoms. He is on tramadol, muscle relaxers, and NSAIDs and states he has continued to have pain. He states the pain is from his cervical spine all the way to his low back, he denies any recurrent trauma. His vitals are stable at this time, he is calm and cooperative. MD elicited complaint: back pain Pertinent past history: prior back pain Onset (ago): month(s) Timing: constant Severity: similar to previous episodes Associated symptoms: Deny abdominal pain, difficulty walking, fecal incontinence, fever(s) or syncope Related Data Home Medications ?Medication ?Instructions ?Recorded ?Confirmed gabapentin 300 mg capsule 300 mg PO BID 02/02/2508/31 brimonidine 0.2 %-timolol 0.5 % drp ophthalmic (eye) 0 03/24/25 08/31/25 eye drops ergocalciferol (vitamin D2) 1,250 PO 03/24/25 08/31/25 mcg (50,000 unit) capsule Previous Rx's ?Medication ?Instructions ?Recorded diclofenac sodium 50 mg 50 mg PO TID PRN pain #30 ta bs 05/23/25 tablet,delayed release methylprednisolone 4 mg tablets in See Rx Instructions PO .COMPLEX 05/23/25 a dose pack (Medrol (Cristi)) #21 ea hydrocodone 5 mg-acetaminophen 325 1 tab PO Q6H PRN pa in #20 tabs 06/02/25 mg tablet polyethylene glycol 3350 17 17 g PO DAILY #510 grams 0 06/02/25 gram/dose oral powder (Miralax) tizanidine 4 mg tablet 4 mg PO BID PRN muscle spast icity 08/31/25 #60 tabs methocarbamol 750 mg tablet 750 mg PO Q6H PRN spasms # 20 tabs 09/12/25 naproxen 500 mg tablet (Naprosyn) 500 mg PO BID PRN pa in #20 tabs 09/12/25 Allergies Allergy/AdvReac Type Severity Reaction Status Date / Time No Known Allergies Allergy Verified 08/31/25 08:42 Review of Systems General: Reports: 10 or more systems reviewed and unremarkable except in HPI and below Const: Reports: other (denies trauma); Denies: fever(s), change in weight or night sweats Card: Denies: chest pain, lightheadedness or syncope Resp: Denies: dyspnea GI: Denies: abdominal pain or fecal incontinence : Denies: urinary incontinence Musc: Reports: back pain; Denies: neck pain or extremity pain Skin/Breast: Denies: rash or skin pain Neuro: Denies: headache(s), numbness in extremities, weakness in extremities, sensory changes, lack of coordination, difficulty walking, frequent falls or involuntary movements PFSH ED PFSH: Social History Smoking and tobacco/nicotine status: former use of tobacco/nicotine Physical Exam Const: COMMON NORMALS: no acute distress, patient oriented x3, no limitations and alert NUTRITIONAL APPEARANCE: underweight Resp: COMMON NORMALS: normal respiratory effort, No retractions, No use of acc essory muscles and clear to auscultation bilaterally AUSCULTATION: clear to auscultation bilaterally Cardio: COMMON NORMALS: regular rate, regular rhythm, S1 normal heart sound present and S2 normal heart sound present RATE: regular rate RHYTHM: regular rhythm HEART SOUNDS: S1 normal heart sound present and S2 normal heart sound present Back/Pelvis: OTHER: Normal visual examination. No significant kyphosis or lordosis appreciated. He has easily reproducible tenderness to very light palpation diffusely along the thoracic and lumbar spine, there is no overlying warmth or skin changes otherwise. Extremity: COMMON NORMALS: normal to inspection and full ROM Neuro: COMMON NORMALS: patient oriented x3, moves all extremities, no focal motor deficits, no sensory deficits noted, deep tendon reflexes 2+ bilaterally and gait normal SENSORIUM/ORIENTATION: Yes alert OTHER: L3, L4, L5, and S1 nerve sensations intact. Normal knee jerk and ankle jerk reflexes. Skin: COMMON NORMALS: no rashes or lesions noted GENERAL SKIN EXAM: no rashes or lesions noted Course Vital Signs: Vital signs: Vital Signs Temperature 97.3 F L 09/14/25 18:18 Pulse Rate 72 09/14/25 18:18 Respiratory Rate 17 09/14/25 18:18 Blood Pressure 122/87 09/14/25 18:18 Pulse Oximetry 100 09/14/25 18:18 Oxygen Delivery Me thod Room Air 09/14/25 18:18 MDM - Back Pain/Injury Medical Decision Making Patient presented for evaluation of his back pain, which has been chronic in nature he has been seen multiple times in the ED for this since April of this year. He has followed up with neuro/spine as well as pain management yet has continued to have pain. There are no new injuries to report, he has still taken his prescribed pain medication, muscle relaxers, and NSAIDs and is still reporting pain. Tells me he has been losing a couple of pounds of weight over the span of weeks despite eating what he reports to be a substantial amount. He has had x-ray and CT imaging in the past, has been reviewed and there is no acute abnormality. He has also had lab work obtained all of which has been unremarkable. I suspect no acute process I do feel that he is requiring an MRI for further evaluation at this point so he is informed to follow-up with his PCP and neurosurgery for this reason. There is nothing of emergent necessity at this time in the ED, he does not require admission, and he has prescribed medications which he will continue. I did relay specific symptoms and signs to watch for that would warrant return to the emergency department, specifically red flag symptoms of incontinence, saddle anesthesia, or inability to ambulate, of which they verbalized understanding. No radiology studies performed this visit Discharge Plan Discharge Patient Disposition: Home Clinical Impression: Back pain Qualifiers: Back pain location: back pain in unspecified location Chronicity: chronic Back pain laterality: midline Qualified Code(s): M54.9 - Dorsalgia, unspecified Condition: Stable Prescriptions: No Action tizanidine 4 mg tablet 4 mg PO BID PRN (Reason: muscle spasticity) Qty: 60 0RF gabapentin 300 mg capsule 300 mg PO BID ergocalciferol (vitamin D2) 1,250 mcg (50,000 unit) capsule PO brimonidine-timolol 0.2-0.5 % drops ophthalmic (eye) methylprednisolone [Medrol (Cristi)] 4 mg tablets,dose pack See Rx Instructions .ROUTE .COMPLEX Qty: 21 0RF Rx Instructions: orally per package directions diclofenac sodium 50 mg tablet,delayed release (DR/EC) 50 mg PO TID PRN (Reason: pain) Qty: 30 0RF hydrocodone-acetaminophen 5-325 mg tablet 1 tab PO Q6H PRN (Reason: pain) Qty: 20 0RF polyethylene glycol 3350 [Miralax] 17 gram/dose powder 17 g PO DAILY Qty: 510 0RF Rx Instructions: Take 1 scoop daily while taking pain medications. methocarbamol 750 mg tablet 750 mg PO Q6H PRN (Reason: spasms) Qty: 20 0RF naproxen [Naprosyn] 500 mg tablet 500 mg PO BID PRN (Reason: pain) Qty: 20 0RF Discharge Orders: Discharge ED (Routine); Ordered 09/14/25 Ordered By: Gray Skelton Referrals: Jairo Elliott MD [Primary Care Provider, [facility]] Patient Instructions: Patient Portal & Christina Instructions Activity Restrictions/Additional Instructions: Continue taking your prescribed medications. Follow-up with your PCP later this week as we discussed for further evaluation, likely you will require an MRI of your back and there is no further imaging to be done in the emergency department setting at this time. Please follow-up with neurosurgery as well, you have been referred again. Please return with any fevers, loss of function of your bowel or bladder, numbness or paralysis, or any other major concerns. Print Language: Brazilian Coding Level of Care Code ED Accounts Payable Administrator for Chg Fwd Documented by User: Duane Rios, DO 09/17/25 22:11 HPI - Back Pain/Injury General: Chief Complaint: Back Pain/Injury Stated Complaint: Back pain and loosing weight Time Seen by Provider: 09/14/25 19:14 Related Data Home Medications ?Medication ?Instructions ?Recorded ?Confirmed gabapentin 300 mg capsule 300 mg PO BID 02/02/2508/31 brimonidine 0.2 %-timolol 0.5 % drp ophthalmic (eye) 0 03/24/25 08/31/25 eye drops ergocalciferol (vitamin D2) 1,250 PO 03/24/25 08/31/25 mcg (50,000 unit) capsule Previous Rx's ?Medication ?Instructions ?Recorded diclofenac sodium 50 mg 50 mg PO TID PRN pain #30 ta bs 05/23/25 tablet,delayed release methylprednisolone 4 mg tablets in See Rx Instructions PO .COMPLEX 05/23/25 a dose pack (Medrol (Cristi)) #21 ea hydrocodone 5 mg-acetaminophen 325 1 tab PO Q6H PRN pa in #20 tabs 06/02/25 mg tablet polyethylene glycol 3350 17 17 g PO DAILY #510 grams 0 06/02/25 gram/dose oral powder (Miralax) tizanidine 4 mg tablet 4 mg PO BID PRN muscle spast icity 08/31/25 #60 tabs methocarbamol 750 mg tablet 750 mg PO Q6H PRN spasms # 20 tabs 09/12/25 naproxen 500 mg tablet (Naprosyn) 500 mg PO BID PRN pa in #20 tabs 09/12/25 Allergies Allergy/AdvReac Type Severity Reaction Status Date / Time No Known Allergies Allergy Verified 08/31/25 08:42 PFSH ED 2 PFSH: Social History Smoking and tobacco/nicotine status: former use of tobacco/nicotine Course Vital Signs: Vital signs: Vital Signs Temperature 97.3 F L 09/14/25 18:18 Pulse Rate 72 09/14/25 18:18 Respiratory Rate 17 09/14/25 18:18 Blood Pressure 122/87 09/14/25 18:18 Pulse Oximetry 100 09/14/25 18:18 Oxygen Delivery Me thod Room Air 09/14/25 18:18 MDM - Back Pain/Injury Medical Decision Making Patient presented for evaluation of his back pain, which has been chronic in nature he has been seen multiple times in the ED for this since April of this year. He has followed up with neuro/spine as well as pain management yet has continued to have pain. There are no new injuries to report, he has still taken his prescribed pain medication, muscle relaxers, and NSAIDs and is still reporting pain. Tells me he has been losing a couple of pounds of weight over the span of weeks despite eating what he reports to be a substantial amount. He has had x-ray and CT imaging in the past, has been reviewed and there is no acute abnormality. He has also had lab work obtained all of which has been unremarkable. I suspect no acute process I do feel that he is requiring an MRI for further evaluation at this point so he is informed to follow-up with his PCP and neurosurgery for this reason. There is nothing of emergent necessity at this time in the ED, he does not require admission, and he has prescribed medications which he will continue. I did relay specific symptoms and signs to watch for that would warrant return to the emergency department, specifically red flag symptoms of incontinence, saddle anesthesia, or inability to ambulate, of which they verbalized understanding. Chart reviewed Discharge Plan Discharge Patient Disposition: Home Clinical Impression: Back pain Qualifiers: Back pain location: back pain in unspecified location Chronicity: chronic Back pain laterality: midline Qualified Code(s): M54.9 - Dorsalgia, unspecified Condition: Stable Prescriptions: No Action tizanidine 4 mg tablet 4 mg PO BID PRN (Reason: muscle spasticity) Qty: 60 0RF gabapentin 300 mg capsule 300 mg PO BID ergocalciferol (vitamin D2) 1,250 mcg (50,000 unit) capsule PO brimonidine-timolol 0.2-0.5 % drops ophthalmic (eye) methylprednisolone [Medrol (Cristi)] 4 mg tablets,dose pack See Rx Instructions .ROUTE .COMPLEX Qty: 21 0RF Rx Instructions: orally per package directions diclofenac sodium 50 mg tablet,delayed release (DR/EC) 50 mg PO TID PRN (Reason: pain) Qty: 30 0RF hydrocodone-acetaminophen 5-325 mg tablet 1 tab PO Q6H PRN (Reason: pain) Qty: 20 0RF polyethylene glycol 3350 [Miralax] 17 gram/dose powder 17 g PO DAILY Qty: 510 0RF Rx Instructions: Take 1 scoop daily while taking pain medications. methocarbamol 750 mg tablet 750 mg PO Q6H PRN (Reason: spasms) Qty: 20 0RF naproxen [Naprosyn] 500 mg tablet 500 mg PO BID PRN (Reason: pain) Qty: 20 0RF Discharge Orders: Discharge ED (Routine); Ordered 09/14/25 Ordered By: Gray Skelton Referrals: Jairo Elliott MD [Primary Care Provider, [facility]] Patient Instructions: Patient Portal & Christina Instructions Activity Restrictions/Additional Instructions: Continue taking your prescribed medications. Follow-up with your PCP later this week as we discussed for further evaluation, likely you will require an MRI of your back and there is no further imaging to be done in the emergency department setting at this time. Please follow-up with neurosurgery as well, you have been referred again. Please return with any fevers, loss of function of your bowel or bladder, numbness or paralysis, or any other major concerns. Print Language: Brazilian Coding Level of Care Code ED Accounts Payable Administrator for Rubia Cole
[2025-09-14] MEDS: morphine 4 mg/mL SDV 1 mL IM (20:04)
== END 2025-09-14 20:07 | disposition home or self-care (01) ==
PROVIDERS: Emergency Provider Physician Assistant; PCP Family Medicine
DX: M54.9 Dorsalgia, unspecified (principal); Z87.891 Personal history of nicotine dependence
CPT/HCPCS: 96372; 96374; 96375; 99284; J2270

== ENCOUNTER 2025-09-18 05:52 | Emergency (ER) | payer BC, MEDICAID, SELFPAY ==
[2025-09-18 05:54] VITALS: BP 131/91; PULSE 97; RESP 18; TEMP 36.8; O2SAT 100; BMI 15.5
--- NOTE | 2025-09-18 06:00 | W.ED.BACK ---
HPI - Back Pain/Injury General: Chief Complaint: Back Pain/Injury Stated Complaint: back pain Time Seen by Provider: 09/18/25 05:55 Source: patient and EMS Mode of arrival: EMS Limitations: no limitations History of Present Illness: 35-year-old male with a history of chronic back pain has been seen multiple times recently for his low back pain states that he has been having paraspinal pain in his low back and worsened this morning when he tried to get up. He denies any saddle anesthesia denies any bowel or bladder incontinence it is improved with rest. Related Data Home Medications ?Medication ?Instructions ?Recorded ?Confirmed gabapentin 300 mg capsule 300 mg PO BID 02/02/25 08/31/25 brimonidine 0.2 %-timolol 0.5 % drp ophthalmic (eye) 03/24/25 08/31/25 eye drops ergocalciferol (vitamin D2) 1,250 PO 03/24/25 08/31/25 mcg (50,000 unit) capsule Previous Rx's ?Medication ?Instructions ?Recorded diclofenac sodium 50 mg 50 mg PO TID PRN pain #30 tabs 05/23/25 tablet,delayed release methylprednisolone 4 mg tablets in See Rx Instructions PO .COMPLEX 05/23/25 a dose pack (Medrol (Cristi)) #21 ea hydrocodone 5 mg-acetaminophen 325 1 tab PO Q6H PRN pain #20 tabs 06/02/25 mg tablet polyethylene glycol 3350 17 17 g PO DAILY #510 grams 06/02/25 gram/dose oral powder (Miralax) tizanidine 4 mg tablet 4 mg PO BID PRN muscle spasticity 08/31/25 #60 tabs methocarbamol 750 mg tablet 750 mg PO Q6H PRN spasms #20 tabs 09/12/25 naproxen 500 mg tablet (Naprosyn) 500 mg PO BID PRN pain #20 tabs 09/12/25 Allergies Allergy/AdvReac Type Severity Reaction Status Date / Time No Known Allergies Allergy Verified 09/18/25 05:59 Review of Systems Musc: Reports: back pain PFSH ED PFSH: Social History Smoking and tobacco/nicotine status: former use of tobacco/nicotine Physical Exam Const: COMMON NORMALS: no acute distress, patient oriented x3 and healthy appearing HENMT: COMMON NORMALS: normocephalic and atraumatic HEAD & SCALP: normocephalic and atraumatic Neck/C-Spine: COMMON NORMALS: full ROM and supple Chest: COMMONS NORMALS: normal inspection of the chest Resp: COMMON NORMALS: normal respiratory effort Cardio: COMMON NORMALS: regular rate RATE: regular rate Back/Pelvis: OTHER: No midline tenderness no saddle esthesia Extremity: COMMON NORMALS: normal to inspection and full ROM Neuro: COMMON NORMALS: patient oriented x3, moves all extremities and no focal motor deficits Psych: COMMON NORMALS: mental status grossly normal, Normal thought process present and cooperative THOUGHT PROCESS: Normal thought process present Skin: COMMON NORMALS: no rashes or lesions noted and no wounds GENERAL SKIN EXAM: no rashes or lesions noted Course Vital Signs: Vital signs: Vital Signs Temperature 98.3 F 09/18/25 05:54 Pulse Rate 97 09/18/25 05:54 Respiratory Rate 18 09/18/25 05:54 Blood Pressure 131/91 09/18/25 05:54 Pulse Oximetry 100 09/18/25 05:54 MDM - Back Pain/Injury Medical Decision Making Patient presents with back pain is chronic in nature he has no signs of cauda equina or epidural abscess. Patient had recent x-rays that showed no fractures did give him Toradol along with Robaxin here will prescribe him Robaxin for home he is to follow-up with his PCP return if worsening. Medical Records I reviewed the patient's medical records. No radiology studies performed this visit Discharge Plan Discharge Patient Disposition: Home Clinical Impression: Low back pain Condition: Stable Prescriptions: No Action tizanidine 4 mg tablet 4 mg PO BID PRN (Reason: muscle spasticity) Qty: 60 0RF gabapentin 300 mg capsule 300 mg PO BID ergocalciferol (vitamin D2) 1,250 mcg (50,000 unit) capsule PO brimonidine-timolol 0.2-0.5 % drops ophthalmic (eye) methylprednisolone [Medrol (Cristi)] 4 mg tablets,dose pack See Rx Instructions .ROUTE .COMPLEX Qty: 21 0RF Rx Instructions: orally per package directions diclofenac sodium 50 mg tablet,delayed release (DR/EC) 50 mg PO TID PRN (Reason: pain) Qty: 30 0RF hydrocodone-acetaminophen 5-325 mg tablet 1 tab PO Q6H PRN (Reason: pain) Qty: 20 0RF polyethylene glycol 3350 [Miralax] 17 gram/dose powder 17 g PO DAILY Qty: 510 0RF Rx Instructions: Take 1 scoop daily while taking pain medications. methocarbamol 750 mg tablet 750 mg PO Q6H PRN (Reason: spasms) Qty: 20 0RF naproxen [Naprosyn] 500 mg tablet 500 mg PO BID PRN (Reason: pain) Qty: 20 0RF Discharge Orders: Discharge ED (Routine); Ordered 09/18/25 Ordered By: Katelyn Chow Referrals: Jairo Elliott MD [Primary Care Provider, [facility]] Discharge Diet: Advance as tolerated Discharge Activity: Resume usual activity Patient Instructions: Back Pain (ED) Print Language: Uzbek Coding Level of Care Code ED Biochemical Development Engineer for Rubia Cole
[2025-09-18 06:50] VITALS: BP 131/91; PULSE 82; O2SAT 96
== END 2025-09-18 06:51 | disposition home or self-care (01) ==
PROVIDERS: Emergency Provider Emergency Medicine; PCP Family Medicine
DX: M54.50 Low back pain, unspecified (principal); Z87.891 Personal history of nicotine dependence
CPT/HCPCS: 96372; 99284; J1885; J9999